=== PATIENT | male | born 2000 | race Caucasian/White ===

== ENCOUNTER 2019-01-14 16:28 | Emergency (ER) | payer MEDICAID, OTHER ==
[2019-01-14 16:43] VITALS: O2SAT 95
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
[2019-01-14 17:30] VITALS: BP 102/88; PULSE 68
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
== END 2019-01-14 17:34 | disposition home or self-care (01) ==
LOC: ED 16:28
DX: M25.562 Pain in left knee (principal); V53.5XXA Driver of pick-up truck or van injured in collision with car, pick-up truck or van in traffic accident, initial encounter; Y92.410 Unspecified street and highway as the place of occurrence of the external cause
CPT/HCPCS: 73562; 73590; 99284